=== PATIENT | male | born 1990 | race Caucasian/White ===

== ENCOUNTER 2018-06-19 14:05 | Emergency (ER) | payer MEDICAID, OTHER ==
[~2018-06-19] VITALS: Ht 162.6 cm; Wt 102.0 kg
[~2018-06-19 14:05] MED LIST: NO HOME MEDS; ONDA4TAB6 PO
[2018-06-19 14:30] VITALS: BP 129/66
[2018-06-19] MEDS ORDERED: orphenadrine citrate 60mg/2ml inj. IM ONE (16:45)
[2018-06-19] MEDS ORDERED: ketorolac tromethamine 15mg/ml inj. IM ONE (16:45)
== END 2018-06-19 17:36 | disposition home or self-care (01) ==
LOC: ER 14:05
DX: G89.29 Other chronic pain (principal); M25.562 Pain in left knee; M54.41 Lumbago with sciatica, right side; Z79.899 Other long term (current) drug therapy; Z59.0 Homelessness; Z56.0 Unemployment, unspecified
CPT/HCPCS: 73564; 96372; 99283; J1885; J2360